=== PATIENT | male | born 1985 | race Caucasian/White ===

== ENCOUNTER 2016-11-15 09:07 | Emergency (ER) | payer MEDICAID ==
[~2016-11-15] VITALS: Ht 170.2 cm; Wt 75.0 kg
[2016-11-15 09:13] VITALS: Ht 170.2 cm; Wt 75.0 kg
[2016-11-15] MEDS ORDERED: HYDROCODONE/APAP (5/325) TAB PO ONE (10:00)
--- NOTE | 2016-11-15 10:40 | RADRPT ---
PROCEDURE: XR Foot 3 Views. CLINICAL INDICATION: Foot pain and trauma. TECHNIQUE: AP, oblique and lateral views of the left foot were obtained. The images were reviewed on a PACS workstation. COMPARISON: None. FINDINGS: Overlying cast material obscures fine detail. Partially visualized obliquely oriented fracture throu gh the distal tibial diaphysis is observed. Subtle lucency through the lateral margin of the head of the fifth metatarsal is seen on the AP image. The remaining osseous structures appear grossly inta ct. No destructive bony lesions are identified. Interosseous spaces are normal. Punctate scattered calcific densities are seen over the soft tissues of the fourth distal phalanx and first toe. IMPRESSION: Overlying cast material obscures fine detail. Repeat exam with the cast removed can be considered. Partially visualized, obliquely oriented fracture through the distal tibial diaphysis. Further jonathan acterization with dedicated tibia and fibula series is recommended. Subtle lucency through the lateral margin of the head of the first metatarsal, seen on the AP image. Finding is questionable for a subtle, nondisplaced fracture. If further characterization is neede d repeat exam with the cast material removed or CT is recommended. Scattered punctate calcific densities over the soft tissues of the fourth distal phalanx and first t oe. These may reflect material external to the patient. Small foreign bodies in the skin and subcu taneous tissues are not definitely excluded. If there is high clinical suspicion for additional traumatic injury, further evaluation with CT shou ld be considered. RPTAT: AA .Jeremy Mata MD, MD Date Time Electronically viewed and signed by .Jeremy Mata MD, MD on 11/15/2016 10:40 .P/
--- NOTE | 2016-11-15 11:10 | ERD ---
ER Documentation Chief Complaint Date/Time DATE: 11/15/16 TIME: 11:05 Chief Complaint left leg pain, has cast, fx it 10/16/16 HPI Patient is a 31-year-old male who has a short leg posterior cast on his left leg secondary to fractures in his ankle and tib-fib that were diagnosed at an outside facility on October 16. He is here today because he states yesterday he tried to walk without his crutches and he scraped his toes on the left foot. He now has pain over his toes. Denies any numbness or tingling. He has not taken any medications for pain. His tetanus is up-to-date. ROS All systems reviewed and are negative except as per history of present illness. Medications Home Meds Active Scripts Hydrocodone/Acetaminophen (Dickerson 5-325 Tablet) 1 Each Tablet, 1 EACH PO Q6, #20 TAB Prov:YANIQUE AGUILA PA-C 11/15/16 Ibuprofen* (Motrin*) 800 Mg Tab, 800 MG PO Q6, #30 TAB Prov:YANIQUE AGUILA PA-C 11/15/16 Allergies Allergies: Coded Allergies: sertraline (Verified Allergy, Intermediate, hives, 11/15/16) PMhx/Soc Hx Alcohol Use: Yes Hx Substance Use: Yes Hx Tobacco Use: No Smoking Status: Never smoker FmHx Family History: No diabetes Physical Exam Vitals Vital Signs Date Time Temp Pulse Resp B/P Pulse Ox O2 Delivery O2 Flow Rate FiO2 11/15/16 09:13 98.6 110 18 131/81 96 Physical Exam INITIAL VITAL SIGNS: Reviewed by me GENERAL: Awake, alert and oriented x 4, well appearing, nontoxic, speaking in full sentences. No acute distress NECK: Supple. No masses. Full range of motion. No meningismus. No midline tenderness. RESPIRATORY: Clear to auscultation bilaterally. Symmetric chest wall rise. No wheezing or rales. No accessory muscle use. CV: Regular rate and rhythm. No murmurs, rubs, or gallops. EXTREMITIES: No clubbing or cyanosis. No edema. Moving all extremities normally. BACK: No midline tenderness to palpation. No step-offs. SKIN: Left lower extremity in cast, abrasions over toes with dried blood, no lacerations, capillary refill less than 2 seconds, sensation to light touch, able to wiggle all toes Results 24 hrs Current Medications Medications (Trade) Dose Ordered Sig/Lynda Route PRN Reason Start Time Stop Time Status Last Admin Dose Admin Acetaminophen/ Hydrocodone Bitart (Dickerson (5/325)) 1 tab ONCE ONCE PO 11/15/16 10:00 11/15/16 10:01 DC 11/15/16 09:42 Procedures/MDM 31-year-old male presents with abrasions to his left foot. He has a cast secondary to fractures that were diagnosed a month ago at an outside facility. His tetanus is up-to-date. X-ray of the foot was ordered and showed the following:Overlying cast material obscures fine detail. Repeat exam with the cast removed can be considered.Partially visualized, obliquely oriented fracture through the distal tibial diaphysis. Further characterization with dedicated tibia and fibula series is recommended.Subtle lucency through the lateral margin of the head of the first metatarsal, seen on the AP image. Finding is questionable for a subtle, nondisplaced fracture. If further characterization is needed repeat exam with the cast material removed or CT is recommended.Scattered punctate calcific densities over the soft tissues of the fourth distal phalanx and first toe. These may reflect material external to the patient. Small foreign bodies in the skin and subcutaneous tissues are not definitely excluded.Fractures of the distal tibial diaphysis and proximal fibular diaphysis. Mild callus formation adjacent to the proximal fibular fracture suggests healing. The patient's big toe was emanuel taped to the adjacent toe. He was given Dickerson for pain control. He already has cast and crutches. Wound care was initialized and is foot was appropriately cleaned dressed and bandaged. Patient was given prescription for ibuprofen and Dickerson. He was given copy of CD with images and radiology report as well as outpatient referral to orthopedics for follow-up. Patient counseled regarding my diagnostic impression and care plan. Prior to discharge all questions answered. Pt agrees with treatment plan and understands strict return precautions. Pt is instructed to follow up with primary care provider within 24-48 hours. Precautionary instructions provided including instructions to return to the ER if not improving or for any worsening or changing symptoms or concerns. Departure Diagnosis: Primary Impression: Ankle fracture Additional Impressions: Toe fracture Toe abrasion Condition: Stable YANIQUE AGUILA PA-C Nov 15, 2016 11:10
--- NOTE | 2016-11-15 11:48 | RADRPT ---
PROCEDURE: XR Tibia and Fibula 2 Views. CLINICAL INDICATION: Left lower leg pain and trauma. TECHNIQUE: AP and lateral views of the left tibia and fibula were obtained. COMPARISON: No prior studies are available for comparison. FINDINGS: Overlying cast material limits fine detail. Obliquely oriented, minimally displaced fracture throug h the distal tibial diaphysis is identified. Obliquely oriented, mildly displaced fractures of the proximal fibular diaphysis is seen. Mild callus formation is seen surrounding the proximal fibular fracture. No destructive bony lesions are identified. Interosseous spaces are grossly unremarkable . Soft tissues surrounding the tibia and fibula are unremarkable. IMPRESSION: Fractures of the distal tibial diaphysis and proximal fibular diaphysis. Mild callus formation torres cent to the proximal fibular fracture suggests healing. Limited exam due to overlying cast material. Repeat exam with the cast removed can be considered. If further characterization is needed CT or MRI could be helpful. If there is high clinical suspicion for additional traumatic injury, further evaluation with CT shou ld be considered.. RPTAT: AA .Jeremy Mata MD, Date Time Electronically viewed and signed by .Jeremy Mata MD, on 11/15/2016 11:48 .P/
[2016-11-15] MEDS ORDERED: IBUP800T25 PO (11:56)
[2016-11-15] MEDS ORDERED: HYDR-906 PO (11:56)
== END 2016-11-15 12:26 | disposition home or self-care (01) ==
LOC: FTE 09:07
DX: S82.302A Unspecified fracture of lower end of left tibia, initial encounter for closed fracture (principal); S80.812A Abrasion, left lower leg, initial encounter; X58.XXXA Exposure to other specified factors, initial encounter; Y92.9 Unspecified place or not applicable
CPT/HCPCS: 73590; 73630; Z7610

== ENCOUNTER 2016-11-21 10:57 | Emergency (ER) | payer MEDICAID ==
[~2016-11-21] VITALS: Ht 170.2 cm; Wt 77.2 kg
[~2016-11-21 10:57] MED LIST: HYDR-906 PO; IBUP800T25 PO
[2016-11-21 10:59] VITALS: Ht 170.2 cm; Wt 77.2 kg
[2016-11-21] MEDS ORDERED: HYDROCODONE/APAP (5/325) TAB PO ONE (11:30)
[2016-11-21] MEDS ORDERED: IBUP800T25 PO (12:07)
[2016-11-21] MEDS ORDERED: TRAM50TA2 PO (12:07)
--- NOTE | 2016-11-21 17:25 | ERD ---
ER Documentation Chief Complaint Date/Time DATE: 11/21/16 TIME: 17:17 Chief Complaint 9/10 left leg pain x 3 days HPI 31-year-old male is complaining of left leg pain. Patient had a spiral tibia fracture on 10/16/2016. Had cast placed at [facility]. He does have follow-up appointments with sales specialist, next appointment is in 6 days. Patient is complaining of sharp, and tingling, pain in the left nair and calf. He was seen here 6 days ago for the same pain, he also sustained abrasion of his toes at that time. He was given a prescription of Claremont by the provider at that time. He states that he has finished all 20 tablets and would like to have more for his pain. Denies pain or numbness of his toes. ROS All systems reviewed and are negative except as per history of present illness. Medications Home Meds Active Scripts Tramadol HCl (Tramadol HCl) 50 Mg Tablet, 50 MG PO Q6 for SEVERE PAIN LEVEL 7-10 , #20 TAB Prov:JOSE BAILEY. EDGE BANDER HAND 11/21/16 Ibuprofen* (Motrin*) 800 Mg Tab, 800 MG PO Q6H Y for PAIN AND OR ELEVATED TEMP, #30 TAB Prov:JOSE BAILEY. EDGE BANDER HAND 11/21/16 Hydrocodone/Acetaminophen (Cl[place]mont 5-325 Tablet) 1 Each Tablet, 1 EACH PO Q6, #20 TAB Prov:YANIQUE AGUILA PA-C 11/15/16 Ibuprofen* (Motrin*) 800 Mg Tab, 800 MG PO Q6, #30 TAB Prov:YANIQUE AGUILA PA-C 11/15/16 Allergies Allergies: Coded Allergies: sertraline (Verified Allergy, Intermediate, hives, 11/21/16) PMhx/Soc Medical and Surgical Hx: pt denies Medical Hx, pt denies Surgical Hx Hx Alcohol Use: Yes Hx Substance Use: Yes Hx Tobacco Use: No Physical Exam Vitals Vital Signs Date Time Temp Pulse Resp B/P Pulse Ox O2 Delivery O2 Flow Rate FiO2 11/21/16 10:59 96.7 116 18 129/84 99 Physical Exam General: Well-developed, well-nourished, conscious and coherent, in no distress Skin: Warm and dry without rash, good texture and turgor Head: Normocephalic without evidence of trauma Eyes: Sclera and conjunctivae normal; pupils equal, round, and reactive to light; extraocular movements are intact Chest: Normal AP diameter. Good expansion without retractions. Nontender. Lungs are clear to auscultate bilaterally with good tidal volume Heart: Regular rate and rhythm. No murmur, rub, or gallops heard Extremities: Left leg in a short leg cast. Toes of the left foot is crusted with dried blood and animal hair. Normal sensation of the toes, cap refill less than 2 seconds. Neuro: Alert and oriented 4, GCS 15. Cranial nerves grossly intact. Motor and sensory exams nonfocal. Moves all extremities. Speech clear. Gait normal Results 24 hrs Current Medications Medications (Trade) Dose Ordered Sig/Lynda Route PRN Reason Start Time Stop Time Status Last Admin Dose Admin Acetaminophen/ Hydrocodone Bitart (Claremont (5/325)) 1 tab ONCE ONCE PO 11/21/16 11:30 11/21/16 11:31 DC 11/21/16 11:29 Procedures/MDM Well-appearing 31-year-old male with recent history of left tibia fracture present ED complaining of left leg pain. The location of his pain coincides with the location of his fracture. Patient has normal sensation and circulation of his toes distal to the injury. I doubt compartment syndrome. Patient also had abrasion of his left foot less than a week ago. His abrasion was cleansed today in the ED. No sign of wound infection. Patient was given socks to help protect his left foot from exposures. Patient wants another refill of Claremont for his pain. I advised patient that I will not be able to provide him with another prescription of Claremont. Tramadol prescribed for patient. Patient is advised to follow-up with his or so as scheduled. Patient appears well, stable for discharge and outpatient management. Medical decision making shared with patient and family. Education provided to patient and family. Patient and family expressed understanding of the plan. Medications on discharge: Ibuprofen, tramadol. Follow-up: Primary care provider in 2-3 days or return to ED if worse. Disclaimer: Inadvertent spelling and grammatical errors are likely due to EHR/ dictation software use and do not reflect on the overall quality of patient care. Also, please note that the electronic time recorded on this note does not necessarily reflect the actual time of the patient encounter. Departure Diagnosis: Primary Impression: Pain of left leg Additional Impression: Medication refill Condition: Stable Patient Instructions: Medication for Pain, Fracture, Lower Extremity Referrals: [facility] YOU HAVE RECEIVED A MEDICAL SCREENING EXAM AND THE RESULTS INDICATE THAT YOU DO NOT HAVE A CONDITION THAT REQUIRES URGENT TREATMENT IN THE EMERGENCY DEPARTMENT. FURTHER EVALUATION AND TREATMENT OF YOUR CONDITION CAN WAIT UNTIL YOU ARE SEEN IN YOUR DOCTORS OFFICE WITHIN THE NEXT 1-2 DAYS. IT IS YOUR RESPONSIBILITY TO MAKE AN APPOINTMENT FOR FOLOW-UP CARE. IF YOU HAVE A PRIMARY DOCTOR --you should call your primary doctor and schedule an appointment IF YOU DO NOT HAVE A PRIMARY DOCTOR YOU CAN CALL OUR PHYSICIAN REFERRAL HOTLINE AT IF YOU CAN NOT AFFORD TO SEE A PHYSICIAN YOU CAN CHOSE FROM THE FOLLOWING [facility] [address] [facility] [address] [facility] [facility] [address] [facility] [address] [facility] [address] [facility] [facility] [address] [facility]. [facility] YOU HAVE RECEIVED A MEDICAL SCREENING EXAM AND THE RESULTS INDICATE THAT YOU DO NOT HAVE A CONDITION THAT REQUIRES URGENT TREATMENT IN THE EMERGENCY DEPARTMENT. FURTHER EVALUATION AND TREATMENT OF YOUR CONDITION CAN WAIT UNTIL YOU ARE SEEN IN YOUR DOCTORS OFFICE WITHIN THE NEXT 1-2 DAYS. IT IS YOUR RESPONSIBILITY TO MAKE AN APPOINTMENT FOR FOLOW-UP CARE. IF YOU HAVE A PRIMARY DOCTOR --you should call your primary doctor and schedule and appointment IF YOU DO NOT HAVE A PRIMARY DOCTOR YOU CAN CALL OUR PHYSICIAN REFERRAL HOTLINE AT . IF YOU CAN NOT AFFORD TO SEE A PHYSICIAN YOU CAN CHOSE FROM THE FOLLOWING [facility] INSTITUTIONS: [facility] [address] [place] [address] [facility] [address] [place] [address] [facility] [address] [place] [address] Additional Instructions: Follow up with your orthopedist as scheduled. JOSE BAILEY NP Nov 21, 2016 17:25
== END 2016-11-21 12:28 | disposition home or self-care (01) ==
LOC: FTE 10:57
DX: M79.605 Pain in left leg (principal); R40.2412 Glasgow coma scale score 13-15, at arrival to emergency department; Z76.0 Encounter for issue of repeat prescription
CPT/HCPCS: 99283

== ENCOUNTER 2016-12-31 10:23 | Emergency (ER) | payer MEDICAID ==
[~2016-12-31] VITALS: Ht 167.6 cm; Wt 78.0 kg
[~2016-12-31 10:23] MED LIST changes: +TRAM50TA2 PO
[2016-12-31 10:26] VITALS: Ht 167.6 cm; Wt 78.0 kg
[2016-12-31] MEDS ORDERED: NAPR-260 PO (11:11)
[2016-12-31] MEDS ORDERED: CEPH-443 PO (11:12)
[2016-12-31] MEDS ORDERED: SULF1TAB31 PO (11:13)
[2016-12-31] MEDS ORDERED: HYDROCODONE/APAP (5/325) TAB PO ONE (11:30)
--- NOTE | 2016-12-31 11:36 | ERD ---
ER Documentation Chief Complaint Date/Time DATE: 12/31/16 TIME: 11:28 Chief Complaint left leg pain was broken back in october HPI This is a 31-year-old male who presents the emergency department today complaining of left leg pain. States that he is concerned that he had cellulitis. States that he broke his pain at the end of October and did not have surgery was just placed in a cast. States that he was incarcerated when he broke his leg. States he takes Motrin for pain. States he does not have a primary care doctor. States he has an appointment with the doctors at [facility] on January 29 but is unable to get there sooner as he does not have a ride.Denies any drug abuse, fevers or chills. ROS All systems reviewed and are negative except as per history of present illness. Medications Home Meds Active Scripts Sulfamethoxazole/Trimethoprim* (Bactrim Ds* Tablet) 1 Each Tablet, 1 TAB PO BID for 7 Days, #14 TAB Prov:LORENA CUNNINGHAM PA-C 12/31/16 Cephalexin* (Keflex*) 500 Mg Capsule, 500 MG PO QID for 7 Days, CAP Prov:LORENA CUNNINGHAM PA-C 12/31/16 Naproxen* (Naprosyn*) 500 Mg Tablet, 500 MG PO BID Y for PAIN AND/OR INFLAMMATION, #30 TAB Prov:LORENA CUNNINGHAM PA-C 12/31/16 Tramadol HCl (Tramadol HCl) 50 Mg Tablet, 50 MG PO Q6 for SEVERE PAIN LEVEL 7-10 , #20 TAB Prov:JOSE BAILEY NP 11/21/16 Ibuprofen* (Motrin*) 800 Mg Tab, 800 MG PO Q6H Y for PAIN AND OR ELEVATED TEMP, #30 TAB Prov:JOSE BAILEY TECHNOLOGY SERVICES MANAGER 11/21/16 Hydrocodone/Acetaminophen (Davenport 5-325 Tablet) 1 Each Tablet, 1 EACH PO Q6, #20 TAB Prov:YANIQUE AGUILA PA-C 11/15/16 Ibuprofen* (Motrin*) 800 Mg Tab, 800 MG PO Q6, #30 TAB Prov:YANIQUE AGUILA PA-C 11/15/16 Allergies Allergies: Coded Allergies: sertraline (Verified Allergy, Intermediate, hives, 11/21/16) PMhx/Soc History of Surgery: No Anesthesia Reaction: No Hx Neurological Disorder: No Hx Respiratory Disorders: No Hx Cardiac Disorders: No Hx Psychiatric Problems: No Hx Miscellaneous Medical Probl: No Hx Alcohol Use: No Hx Substance Use: No Hx Tobacco Use: No Smoking Status: Never smoker Physical Exam Vitals Vital Signs Date Time Temp Pulse Resp B/P Pulse Ox O2 Delivery O2 Flow Rate FiO2 12/31/16 10:26 98.2 109 18 145/89 100 Physical Exam Const: NAD Head: Atraumatic Eyes: Normal Conjunctiva ENT: Normal External Ears, Nose and Mouth. Neck: Full range of motion..~ No meningismus. Resp: Clear to auscultation bilaterally Cardio: Regular rate and rhythm, no murmurs Abd: Soft, non tender, non distended. Normal bowel sounds Skin: Multiple scabs diffusely over patient's bilateral arms and legs Back: No midline or flank tenderness Ext: left leg No obvious deformity. No diffuse effusion.Localized edemaDistal tibia. Evidence of scabs. No purulent drainage. Full active range of motion of ankle and knee. Neur: Awake and alert Psych: Normal Mood and Affect Results 24 hrs Current Medications Medications (Trade) Dose Ordered Sig/Lynda Route PRN Reason Start Time Stop Time Status Last Admin Dose Admin Acetaminophen/ Hydrocodone Bitart ([place]aven[place] (5/325)) 1 tab ONCE ONCE PO 12/31/16 11:30 12/31/16 11:31 12/31/16 11:14 Procedures/MDM This is a 31-year-old male who presents the emergency department today complaining of left leg pain. Patient was requesting pain medication. He states he is also concerned that he has cellulitis.Patient is a poor historian and kept changing his story. Tikait that he never had surgery on his leg. He states that he was incarcerated when [facility] indicated he does not have an appointment until January 29 and is unable to get there sooner as he is not able to get a ride. Patient indicated he was able to get a ride today because it is close close to his house". Patient initially denied any new trauma and then changed his story stating that one week ago he did try to help somebody move and he slipped and has had some pain since that time but he had been seen at [facility] and had an x-ray at that time that was negative for any acute or new fractures. Patient was instructed to use crutches. Upon further questioning patient stated that "I guess I should have brought my crutches today". Patient has multiple areas of scabs on his bilateral arms and legs. When I asked the patient what the scabs before he states that he has a bad habit of itching. Denies any drug abuse. Patient had some localized firmness and induration without erythema on his left distal tibia. I have low suspicion for compartment syndrome, sepsis, deep space infection. Patient is afebrile and otherwise well-appearing. Given patient's concern and multiple scabs diffusely on his arms and legs I will give the patient a prescription for Bactrim and Keflex to treat possible staph infection. At this time the patient is stable for discharge and outpatient management. Patient should follow up with their PCP in the next 1-2 days. They may return to the emergency department sooner for any persistent or worsening of symptoms. Patient understood and agreed with the plan. Patient symptoms at this time is consistent with chronic leg pain and possible early cellulitis. Upon review of patient's medical records patient has been seen here twice previously for pain in his leg. His last visit he received tramadol. Upon review of cures and an [place] report patient does not appear to be getting descriptions from multiple areas. He does not appear to be abusing narcotics however I have explained to the patient that I do not feel it is beneficial to continue giving him prescriptions for narcotics for chronic pain at this time. Patient was given one [place]en[place] here in the emergency department. He was discharged home with Naprosyn. I have explained to him that he needs to follow back up with his doctors for pain control. I also gave him a referral information for Dr. Salas, painter airbrush.He was instructed to use his crutches. At this time the patient is stable for discharge and outpatient management. Patient should follow up with their PCP in the next 1-2 days. They may return to the emergency department sooner for any persistent or worsening of symptoms. Patient understood and agreed with the plan. Departure Diagnosis: Primary Impression: Pain of left leg Condition: Fair Patient Instructions: Pain Management [facility] YOU HAVE RECEIVED A MEDICAL SCREENING EXAM AND THE RESULTS INDICATE THAT YOU DO NOT HAVE A CONDITION THAT REQUIRES URGENT TREATMENT IN THE EMERGENCY DEPARTMENT. FURTHER EVALUATION AND TREATMENT OF YOUR CONDITION CAN WAIT UNTIL YOU ARE SEEN IN YOUR DOCTORS OFFICE WITHIN THE NEXT 1-2 DAYS. IT IS YOUR RESPONSIBILITY TO MAKE AN APPOINTMENT FOR FOLOW-UP CARE. IF YOU HAVE A PRIMARY DOCTOR --you should call your primary doctor and schedule an appointment IF YOU DO NOT HAVE A PRIMARY DOCTOR YOU CAN CALL OUR PHYSICIAN REFERRAL HOTLINE AT IF YOU CAN NOT AFFORD TO SEE A PHYSICIAN YOU CAN CHOSE FROM THE FOLLOWING [facility] [address] [facility] [address] [facility] [address] [facility] [address] [facility] [address] [facility] [facility] [address] [facility]. [facility] Urgent Care 7 a.m.- 11 p.m. Every Day of the Week NO APPOINTMENT OR AUTHORIZATION NEEDED Additional Instructions: Call your primary care doctor TOMORROW for an appointment during the next 1-2 days.See the doctor sooner or return here if your condition worsens before your appointment time. Make an appointment with your doctor at [facility] sooner than January 29. Take Naprosyn or Tylenol or Motrin for pain Use the crutches you were instructed to use Take antibiotics as prescribed Make an appointment with painter airbrush LORENA CUNNINGHAM PA-C Dec 31, 2016 11:36
== END 2016-12-31 11:50 | disposition home or self-care (01) ==
LOC: FTE 10:23
DX: M79.605 Pain in left leg (principal)
CPT/HCPCS: Z7502; Z7610; 99284

== ENCOUNTER 2018-05-10 16:40 | Emergency (ER) | payer MEDICAID, OTHER ==
[~2018-05-10] VITALS: Wt 97.1 kg
[~2018-05-10 16:40] MED LIST changes: +CEPH-443 PO; +HYDR-4011 PO; -HYDR-906 PO; -IBUP800T25 PO; +IBUP800T48 PO; +NAPR-985 PO; +SULF1TAB31 PO
[2018-05-10 16:43] VITALS: BP 141/99; PULSE 71; RESP 19
[2018-05-10] MEDS ORDERED: CEPH-443 PO (17:34)
[2018-05-10] MEDS ORDERED: SULF1TAB31 PO (17:34)
--- NOTE | 2018-05-10 18:06 | ERD ---
ER Documentation Chief Complaint Chief Complaint BIB SELF, CC: REDNESS AROUND INJECTION SITES ON ARMS, "NEED ANTIBIOTICS" HPI 32-year-old male presents for redness around the injection site on his bilateral arms. Patient injects meth. Denies any fevers or chills. Does have history of abscess. No other complaints noted. ROS All systems reviewed and are negative except as per history of present illness. Medications Home Meds Active Scripts Sulfamethoxazole/Trimethoprim* (Bactrim Ds* Tablet) 1 Each Tablet, 1 TAB PO BID for cellulitis for 10 Days, #20 TAB Prov:CAMEJOSTEPHANI 05/10/18 Cephalexin* (Keflex*) 500 Mg Capsule, 500 MG PO TID for cellulitis for 10 Days, #30 CAP Prov:NELLSTEPHANI 05/10/18 Sulfamethoxazole/Trimethoprim* (Bactrim Ds* Tablet) 1 Each Tablet, 1 TAB PO BID for 7 Days, #14 TAB Prov:LORENA CUNNINGHAM PA-C 12/31/16 Cephalexin* (Keflex*) 500 Mg Capsule, 500 MG PO QID for 7 Days, CAP Prov:LORENA CUNNINGHAM PA-C 12/31/16 Naproxen* (Naprosyn*) 500 Mg Tablet, 500 MG PO BID PRN for PAIN AND/OR INFLAMMATION, #30 TAB Prov:LORENA CUNNINGHAM PA-C 12/31/16 Tramadol HCl (Tramadol HCl) 50 Mg Tablet, 50 MG PO Q6 for SEVERE PAIN LEVEL 7- 10, #20 TAB Prov:JOSE BAILEY [employer] 11/21/16 Ibuprofen* (Motrin*) 800 Mg Tab, 800 MG PO Q6H PRN for PAIN AND OR ELEVATED TEMP, #30 TAB Prov:JOSE BAILEY. [employer] 11/21/16 Hydrocodone/Acetaminophen ([place] 5-325 Tablet) 1 Each Tablet, 1 EACH PO Q6, #20 TAB Prov:YANIQUE AGUILA PA-C 11/15/16 Ibuprofen* (Motrin*) 800 Mg Tab, 800 MG PO Q6, #30 TAB Prov:YANIQUE AGUILA PA-C 11/15/16 Allergies Allergies: Coded Allergies: sertraline (Verified Allergy, Intermediate, hives, 11/21/16) PMhx/Soc History of Surgery: No Anesthesia Reaction: No Hx Neurological Disorder: No Hx Respiratory Disorders: Yes (ASTHMA) Hx Cardiac Disorders: No Hx Psychiatric Problems: Yes (BIPOLAR, ) Hx Miscellaneous Medical Probl: No Hx Alcohol Use: Yes Hx Substance Use: Yes (METH) Hx Tobacco Use: Yes Smoking Status: Current every day smoker Physical Exam Vitals Vital Signs Date Temp Pulse Resp B/P (MAP) Pulse Ox O2 O2 Flow FiO2 Time Delivery Rate 05/10/18 98.2 71 19 141/99 100 16:43 (113) Physical Exam Const: No acute distress Resp: Clear to auscultation bilaterally Cardio: Regular rate and rhythm, no murmurs, bilateral radial pulses intact, cap refills less than 2 seconds in all fingers of the bilateral hands Abd: Soft, non tender, non distended. Normal bowel sounds Skin: There is cellulitis noted in the left wrist about 1 cm area, another area around the right forearm also about 1 cm, and 3 small erythematous spots over the right antecubital area, all areas have increased warmth, there is no underlying fluctuance noted Back: No midline or flank tenderness Ext: No cyanosis, or edema Neur: Awake and alert, bilateral upper extremity sensation intact Psych: Normal Mood and Affect Procedures/MDM Medical Decision Making: Differential diagnosis includes but not limited to skin abscess, cellulitis, contact dermatitis Patient appeared well on physical exam. Examination of the skin showed cellulitis over the bilateral arms, no underlying fluctuance to suggest abscess. Patient likely has cellulitis Prescription(s): Patient given prescription for Keflex and Bactrim. Advised to return to the ER in 2 days for a wound inspection. Patient advised to follow up with PCP in 1-2 days. Patient advised to return to ED for new or worsening symptoms. Patient stable on discharge from the ED. Disclaimer: Inadvertent spelling and grammatical errors are likely due to EHR/dictation software use and do not reflect on the overall quality of patient care. Also, please note that the electronic time recorded on this note does not necessarily reflect the actual time of the patient encounter. Departure Diagnosis: Primary Impression: Cellulitis Site of cellulitis: extremity Site of cellulitis of extremity: upper extremity Laterality: unspecified laterality Qualified Codes: L03.119 - Cellulitis of unspecified part of limb Condition: Fair Patient Instructions: Cellulitis Referrals: [facility] YOU HAVE RECEIVED A MEDICAL SCREENING EXAM AND THE RESULTS INDICATE THAT YOU DO NOT HAVE A CONDITION THAT REQUIRES URGENT TREATMENT IN THE EMERGENCY DEPARTMENT. FURTHER EVALUATION AND TREATMENT OF YOUR CONDITION CAN WAIT UNTIL YOU ARE SEEN IN YOUR DOCTORS OFFICE WITHIN THE NEXT 1-2 DAYS. IT IS YOUR RESPONSIBILITY TO MAKE AN APPOINTMENT FOR FOLOW-UP CARE. IF YOU HAVE A PRIMARY DOCTOR --you should call your primary doctor and schedule an appointment IF YOU DO NOT HAVE A PRIMARY DOCTOR YOU CAN CALL OUR PHYSICIAN REFERRAL HOTLINE AT IF YOU CAN NOT AFFORD TO SEE A PHYSICIAN YOU CAN CHOSE FROM THE FOLLOWING [facility] [address] [facility] [address] [facility] [address] [facility] [address] [facility] [address] [address] [facility] [address] [facility]. [facility]. [address] Additional Instructions: Call your primary care doctor TOMORROW for an appointment during the next 1-2 days.See the doctor sooner or return here if your condition worsens before your appointment time. return to ED in 2 days for wound check. STEPHANI CAMEJO DO May 10, 2018 18:06
== END 2018-05-10 18:34 | disposition home or self-care (01) ==
LOC: FTE 16:40
DX: L03.119 Cellulitis of unspecified part of limb (principal); J45.909 Unspecified asthma, uncomplicated; F17.210 Nicotine dependence, cigarettes, uncomplicated
CPT/HCPCS: 99283